=== PATIENT | male | born 1975 | race Caucasian/White ===

== ENCOUNTER 2023-10-24 08:58 | Emergency (ER) | payer OTHER ==
[~2023-10-24] VITALS: Ht 177.8 cm; Wt 81.6 kg
[2023-10-24] MEDS ORDERED: NORVASC2.5 M1 PO (09:12)
[2023-10-24 10:25] LABS: HEMATOCRIT 42.4 % (39.0-48.0); HEMOGLOBIN 14.7 g/dL (13-16.00); MEAN CELL VOLUME 80.6 fL (80.0-100.00); MEAN CORPUSCULAR HGB CONC 34.7 g/dl (32.0-36.0); PLATELET COUNT 244 K/uL (150-450); RED BLOOD COUNT 5.26 M/uL (4.00-6.00); RED CELL DISTRIBUTION WIDTH 13.5 % (11.5-14.5)
[2023-10-24 10:48] LABS: URINE APPEARANCE Clear; URINE BILIRRUBIN Negative (NEGATIVE); URINE BLOOD Negative; URINE COLOR Yellow; URINE GLUCOSE Negative (NEGATIVE); URINE LEUKOCYTE Negative; URINE NITRATE Negative; URINE PROTEIN Negative (NEGATIVE)
[2023-10-24 10:53] LABS: URINE BACTERIA 8.8 uL (0.0-1933); URINE RBC 2.7 uL (0.0-20.8); URINE WBC 2.7 uL (0.0-23.2)
[2023-10-24 10:55] LABS: URINE EPITHELIAL CELLS 1.3 uL (0.0-38.8)
[2023-10-24 10:59] LABS: ALBUMIN 4.5 gm/dL (3.4-5.0); BILIRUBIN TOTAL 1.53 mg/dL (0.3-1.2); CALCIUM 9.3 mg/dL (8.5-10.1); CREATININE SERUM 1.78 mg/dL (0.70-1.30); GFR 40.66; GLOBULINA 2.6 G/DL (2.4-3.5); POTASSIUM 4.24 mEq/L (3.5-5.1); TOTAL PROTEIN 7.1 gm/dL (6.4-8.2)
== END 2023-10-24 13:20 | disposition home or self-care (01) ==
LOC: ER 08:59
PROVIDERS: General Practice
DX: N13.2 Hydronephrosis with renal and ureteral calculous obstruction (principal); I10 Essential (primary) hypertension

== ENCOUNTER 2023-10-31 09:32 | Outpatient (CLI) | payer OTHER ==
[~2023-10-31 09:32] MED LIST: NORVASC2.5 M1 PO
[2023-11-01] MEDS ORDERED: TAMS0.4C PO (06:15)
[2023-11-01] MEDS ORDERED: EZALLOR SPRINKL10 MG PO (06:16)
[2023-11-01] MEDS ORDERED: TRAMADOL HCL E100 M1 (06:16)
== END 2023-10-31 09:41 | disposition home or self-care (01) ==
LOC: RAD 09:32
PROVIDERS: ATTEND Urology
DX: N20.1 Calculus of ureter (principal)

== ENCOUNTER → 2023-11-01 | Day surgery (SDC) | payer OTHER ==
[~2023-11-01] VITALS: Ht 177.8 cm; Wt 79.4 kg
[~2023-11-01] MED LIST changes: +EZALLOR SPRINKL10 MG PO; +TAMS0.4C PO; +TRAMADOL HCL E100 M1
[2023-11-01 08:21] LABS: HEMATOCRIT 39.2 % (39.0-48.0); HEMOGLOBIN 13.6 g/dL (13-16.00); MEAN CELL VOLUME 79.8 fL (80.0-100.00); MEAN CORPUSCULAR HEMOGLOBIN 27.7 pg (27.00-32.0); MEAN CORPUSCULAR HGB CONC 34.7 g/dl (32.0-36.0); PLATELET COUNT 348 K/uL (150-450); RED BLOOD COUNT 4.92 M/uL (4.00-6.00); RED CELL DISTRIBUTION WIDTH 13.3 % (11.5-14.5)
[2023-11-01 08:41] LABS: INR 1.08; PARTIAL THROMBOPLASTIN TIME 29.4 SECONDS (22.0-34.0); PROTHROMBIN TIME 11.3 SECONDS (9.0-11.5)
[2023-11-01 08:43] LABS: ALBUMIN 4.1 gm/dL (3.4-5.0); BILIRUBIN TOTAL 0.57 mg/dL (0.3-1.2); CREATININE SERUM 2.04 mg/dL (0.70-1.30); GFR 34.74; GLOBULINA 3.5 G/DL (2.4-3.5); POTASSIUM 4.62 mEq/L (3.5-5.1); TOTAL PROTEIN 7.6 gm/dL (6.4-8.2)
[2023-11-01 08:48] LABS: PH,URINE 5.5 (5.0-8.0); URINE APPEARANCE Clear; URINE BILIRRUBIN Negative (NEGATIVE); URINE BLOOD Negative; URINE COLOR Yellow; URINE GLUCOSE Negative (NEGATIVE); URINE LEUKOCYTE Negative; URINE NITRATE Negative; URINE PROTEIN Negative (NEGATIVE)
[2023-11-01 08:49] LABS: URINE BACTERIA 6.2 uL (0.0-1933); URINE EPITHELIAL CELLS 1.5 uL (0.0-38.8); URINE RBC 12.5 uL (0.0-20.8); URINE WBC 2.9 uL (0.0-23.2)
== END | disposition home or self-care (01) ==
LOC: ER 06:09 → CIR.AMB 06:28 → ER 06:28 → SEC-K 06:52 → O/R 06:52 → ER 06:52 → SEC-K 10:32 → O/R 10:32 → EDSTATUS 12:45 → O/R 15:30
PROVIDERS: ATTEND General Practice
DX: N20.1 Calculus of ureter (principal); N13.30 Unspecified hydronephrosis